=== PATIENT | male | born 1965 | race Caucasian/White ===

== ENCOUNTER 2024-03-04 10:12 | Inpatient (IN) | payer OTHER ==
[~2024-03-04] VITALS: Ht 180.3 cm; Wt 104.8 kg
[2024-03-04 13:30] VITALS: BP 138/106; TEMP 98.1
[2024-03-04] MEDS ORDERED: MAGNESIUM HYDROXIDE 30 ML UDC PO PRN (14:00)
[2024-03-04] MEDS ORDERED: ZOLPIDEM TARTRATE 5 MG TABLET PO PRN (14:00)
[2024-03-04] MEDS ORDERED: Z GUARD REMEDY 4 OZ OINT TP PRN (14:00)
[2024-03-04] MEDS ORDERED: MAG HYDROX/AL HYDROX/SIMETH 30 ML UDC PO PRN (14:00)
[2024-03-04] MEDS ORDERED: ONDANSETRON HCL/PF 4 MG/2 ML VIAL IVP PRN (14:00)
[2024-03-04] MEDS: IV D5/0.45 NACL 1,000 ML IV PRN (15:23)
[2024-03-04 15:46] LABS: BASOPHILS % (AUTO) 0.2 % (0.0-2.0); EOSINOPHILS # (AUTO) 0.1 K/uL (0.0-0.7); HEMATOCRIT 34 % (39-51); HEMOGLOBIN 10.8 g/dL (13.5-17.5); LYMPHOCYTES # (AUTO) 1.1 K/uL (0.8-4.8); LYMPHOCYTES % (AUTO) 9.5 % (20.0-44.0); MEAN CORPUSCULAR HEMOGLOBIN 26 PG (26.0-33.0); MEAN CORPUSCULAR HGB CONC 32 g/dl (31.0-36.0); MEAN CORPUSCULAR VOLUME 82 fL (80-96); MONOCYTES # (AUTO) 1.1 K/uL (0.1-1.30); MONOCYTES % (AUTO) 9.3 % (2.0-12.0); NEUTROPHILS # (AUTO) 9.4 K/uL (1.8-8.9); PLATELET COUNT (AUTO) 336 K/uL (150-450); RED CELL DISTRIBUTION WIDTH 17.7 % (11.5-15.0); WHITE BLOOD COUNT (AUTO) 11.8 K/uL (4.3-11.0)
[2024-03-04] MEDS: MORPHINE SULFATE INJ 2 MG/ML DISP.SYRIN IV PRN (15:57)
[2024-03-04 15:59] LABS: ALBUMIN 1.8 g/dL (3.4-5.0); BILIRUBIN,TOTAL 0.6 mg/dL (0.2-1.0); POTASSIUM 3.3 mmol/L (3.5-5.1); TOTAL PROTEIN, SERUM 5.5 g/dL (6.4-8.2)
[2024-03-04 16:00] VITALS: BP 124/97; TEMP 98.6
[2024-03-04 20:00] VITALS: BP 110/74; TEMP 98.2; O2SAT 96
[2024-03-04] MEDS: ENOXAPARIN SODIUM 40 MG/0.4 ML DISP.SYRIN SQ SCH (21:30)
[2024-03-04] MEDS: HYDROMORPHONE 1 MG/1 ML DISP.SYRIN IV PRN (22:03)
[2024-03-05] VITALS: BP 114/71; TEMP 98.2; O2SAT 97
[2024-03-05 07:01] LABS: BASOPHILS % (AUTO) 0.2 % (0.0-2.0); EOSINOPHILS # (AUTO) 0.1 K/uL (0.0-0.7); HEMATOCRIT 31 % (39-51); LYMPHOCYTES # (AUTO) 0.9 K/uL (0.8-4.8); LYMPHOCYTES % (AUTO) 7.6 % (20.0-44.0); MEAN CORPUSCULAR HEMOGLOBIN 27 PG (26.0-33.0); MEAN CORPUSCULAR HGB CONC 32 g/dl (31.0-36.0); MEAN CORPUSCULAR VOLUME 82 fL (80-96); MONOCYTES # (AUTO) 1.1 K/uL (0.1-1.30); NEUTROPHILS # (AUTO) 9.9 K/uL (1.8-8.9); NEUTROPHILS % (AUTO) 82.2 % (43.0-81.0); PLATELET COUNT (AUTO) 280 K/uL (150-450); RED BLOOD CELL COUNT(AUTO) 3.78 MIL/uL (4.5-6.0); RED CELL DISTRIBUTION WIDTH 17.6 % (11.5-15.0)
[2024-03-05 07:21] LABS: CALCIUM, SERUM 7.6 mg/dL (8.5-10.1); CREATININE 0.7 mg/dL (0.6-1.3); MAGNESIUM 1.6 mg/dL (1.8-2.4); PHOSPHORUS 3.1 mg/dL (2.5-4.9); POTASSIUM 3.1 mmol/L (3.5-5.1)
[2024-03-05 08:00] VITALS: BP 115/80; TEMP 97.7; O2SAT 99
[2024-03-05] MEDS: PANTOPRAZOLE 40 MG VIAL IV SCH (08:27)
[2024-03-05] MEDS: Magnesium 1GM/D5W 100ML PREMIX 100 ML IV SCH (09:47)
[2024-03-05] MEDS ORDERED: KETOROLAC TROMETHAMINE 15 MG/ML VIAL IV PRN (10:00)
[2024-03-05] MEDS: POTASSIUM CL. PREMIX PERIPHER. 50 ML IV SCH (10:45)
[2024-03-05] MEDS: LORAZEPAM INJ 2 MG/ML VIAL IV PRN (11:43)
[2024-03-05] MEDS ORDERED: TAMS-12 PO (13:04)
[2024-03-05] MEDS ORDERED: SUMA100T GT (13:04)
[2024-03-05] MEDS ORDERED: ATOR20TA PO (13:04)
[2024-03-05] MEDS ORDERED: UMEC62.5 IH (13:04)
[2024-03-05] MEDS ORDERED: GABA300C PO (13:04)
[2024-03-05] MEDS ORDERED: BUDE10.22 IH (13:04)
[2024-03-05] MEDS ORDERED: AMIO200T5 PO (13:04)
[2024-03-05] MEDS ORDERED: ONDA4TAB5 PO (13:04)
[2024-03-05] MEDS ORDERED: OMEP20CA15 PO (13:04)
[2024-03-05] MEDS ORDERED: QUET25TA PO (13:04)
[2024-03-05] MEDS ORDERED: APIX5TAB PO (13:04)
[2024-03-05] MEDS ORDERED: HYOS-27 PO (13:04)
[2024-03-05] MEDS ORDERED: FOLI0.4T6 PO (13:04)
[2024-03-05] MEDS ORDERED: DICL100G26 TP (13:04)
[2024-03-05] MEDS ORDERED: METO-357 PO (13:04)
[2024-03-05] MEDS ORDERED: PARO40TA4 PO (13:04)
[2024-03-05] MEDS ORDERED: TRAZ-182 PO (13:04)
[2024-03-05] MEDS: ACETAMINOPHEN 325 MG TABLET PO PRN (15:01)
[2024-03-05 16:00] VITALS: BP 115/89; TEMP 97.7; O2SAT 96
[2024-03-05] MEDS: LORAZEPAM INJ 2 MG/ML VIAL IV ONE (17:02)
[2024-03-05] MEDS: OLANZAPINE 10 MG VIAL IM STA (18:25)
[2024-03-05] MEDS ORDERED: Medication Not On Formulary EA (Budesonide/Formoterol Fumarate (Symbicort 80-4.5 Mcg Inh IH PRN (18:30)
[2024-03-05] MEDS: IPRATROPIUM NEB FS 0.5 MG/2.5 ML AMPUL.NEB NEB SCH (19:30)
[2024-03-05] MEDS ORDERED: BUDESONIDE RESPULE INH 0.5 MG/2 ML AMPUL.NEB NEB PRN (19:30)
[2024-03-05] MEDS ORDERED: ALBUTEROL FS 2.5 MG/3 ML VIAL.NEB NEB PRN (19:30)
[2024-03-05] MEDS: HYOSCYAMINE SULFATE 0.125 MG TAB.SUBL SL SCH (21:27)
[2024-03-05] MEDS: PAROXETINE HCL 20 MG TABLET PO SCH (21:27)
[2024-03-05] MEDS: TRAZODONE 50 MG TABLET PO SCH (21:27)
[2024-03-06] VITALS: BP 118/87; TEMP 98.4; O2SAT 95
[2024-03-06] MEDS: METOPROLOL SUCCINATE 50 MG TAB.SR.24H PO SCH
[2024-03-06 06:40] LABS: BASOPHILS % (AUTO) 0.2 % (0.0-2.0); EOSINOPHILS # (AUTO) 0.1 K/uL (0.0-0.7); EOSINOPHILS % (AUTO) 0.7 % (0.0-6.0); HEMATOCRIT 31 % (39-51); LYMPHOCYTES # (AUTO) 0.9 K/uL (0.8-4.8); MEAN CORPUSCULAR HEMOGLOBIN 27 PG (26.0-33.0); MEAN CORPUSCULAR HGB CONC 33 g/dl (31.0-36.0); MEAN CORPUSCULAR VOLUME 81 fL (80-96); MONOCYTES # (AUTO) 1.1 K/uL (0.1-1.30); MONOCYTES % (AUTO) 9.7 % (2.0-12.0); NEUTROPHILS # (AUTO) 9.1 K/uL (1.8-8.9); NEUTROPHILS % (AUTO) 81.4 % (43.0-81.0); PLATELET COUNT (AUTO) 258 K/uL (150-450); RED BLOOD CELL COUNT(AUTO) 3.76 MIL/uL (4.5-6.0); RED CELL DISTRIBUTION WIDTH 17.8 % (11.5-15.0); WHITE BLOOD COUNT (AUTO) 11.1 K/uL (4.3-11.0)
[2024-03-06 06:41] LABS: CALCIUM, SERUM 8.1 mg/dL (8.5-10.1); MAGNESIUM 2.4 mg/dL (1.8-2.4); PHOSPHORUS 3.3 mg/dL (2.5-4.9); POTASSIUM 3.4 mmol/L (3.5-5.1)
[2024-03-06 07:40] LABS: CREATININE 0.8 mg/dL (0.6-1.3)
[2024-03-06 08:00] VITALS: BP 123/92; TEMP 98.8; O2SAT 99
[2024-03-06] MEDS: ATORVASTATIN 10 MG TABLET PO SCH (08:44)
[2024-03-06] MEDS: GABAPENTIN 300 MG CAPSULE PO SCH (08:44)
[2024-03-06] MEDS: TAMSULOSIN 0.4 MG CAP.SR.24H PO SCH (08:44)
[2024-03-06] MEDS: APIXABAN 5 MG TABLET PO SCH (08:46)
[2024-03-06] MEDS: FOLIC ACID 1 MG TABLET PO SCH (08:46)
[2024-03-06] MEDS: DICLOFENAC TOPICAL 100 GM TUBE TP SCH (08:47)
[2024-03-06] MEDS ORDERED: QUETIAPINE FUMARATE 25 MG TABLET PO SCH (09:00)
[2024-03-06] MEDS ORDERED: SUMATRIPTAN SUCCINATE 100 MG TABLET GT PRN (09:00)
[2024-03-06] MEDS: AMIODARONE HCL 200 MG TABLET PO SCH (09:27)
[2024-03-06] MEDS: POTASSIUM CHLORIDE 20 MEQ TAB.PRT.SR PO SCH (11:59)
[2024-03-06] MEDS: HYDROCODONE/APAP 10/325MG TABLET PO PRN (12:27)
[2024-03-06] MEDS ORDERED: LORAZEPAM INJ 2 MG/ML VIAL IM PRN (14:00)
[2024-03-06 16:00] VITALS: BP 104/71; TEMP 97.7; O2SAT 95
[2024-03-06 20:31] VITALS: O2SAT 99
[2024-03-06 20:45] VITALS: O2SAT 99
[2024-03-06] MEDS ORDERED: HYOSCYAMINE SULFATE 0.125 MG TAB.SUBL ONE (21:09)
[2024-03-06] MEDS: PAROXETINE HCL 20 MG TABLET PO SCH (21:28)
[2024-03-07] VITALS (7 sets, daily range): BP systolic 103–110; BP diastolic 75–87; TEMP 97.3–98.4; O2SAT 95–100
[2024-03-07] MEDS ORDERED: HYOSCYAMINE SULFATE 0.125 MG TAB.SUBL ONE (05:13)
[2024-03-07 06:57] LABS: BASOPHILS % (AUTO) 0.4 % (0.0-2.0); EOSINOPHILS # (AUTO) 0.3 K/uL (0.0-0.7); EOSINOPHILS % (AUTO) 2.7 % (0.0-6.0); HEMATOCRIT 28 % (39-51); HEMOGLOBIN 9.4 g/dL (13.5-17.5); LYMPHOCYTES # (AUTO) 0.9 K/uL (0.8-4.8); LYMPHOCYTES % (AUTO) 8.9 % (20.0-44.0); MEAN CORPUSCULAR HEMOGLOBIN 27 PG (26.0-33.0); MEAN CORPUSCULAR HGB CONC 33 g/dl (31.0-36.0); MEAN CORPUSCULAR VOLUME 82 fL (80-96); NEUTROPHILS # (AUTO) 8.5 K/uL (1.8-8.9); PLATELET COUNT (AUTO) 249 K/uL (150-450); RED BLOOD CELL COUNT(AUTO) 3.46 MIL/uL (4.5-6.0); RED CELL DISTRIBUTION WIDTH 18.3 % (11.5-15.0); WHITE BLOOD COUNT (AUTO) 10.7 K/uL (4.3-11.0)
[2024-03-07 07:06] LABS: CALCIUM, SERUM 8.1 mg/dL (8.5-10.1); CREATININE 0.9 mg/dL (0.6-1.3); PHOSPHORUS 2.8 mg/dL (2.5-4.9); POTASSIUM 3.5 mmol/L (3.5-5.1)
[2024-03-07] MEDS: PANTOPRAZOLE 40 MG TABLET.DR PO SCH (07:54)
[2024-03-07] MEDS ORDERED: PARO20TA7 PO (13:54)
[2024-03-08] VITALS: BP 100/74; TEMP 98.8; O2SAT 98
[2024-03-08 04:00] VITALS: BP 104/78; TEMP 98.2; O2SAT 98
[2024-03-08 07:56] LABS: BASOPHILS % (AUTO) 0.4 % (0.0-2.0); EOSINOPHILS # (AUTO) 0.3 K/uL (0.0-0.7); EOSINOPHILS % (AUTO) 2.9 % (0.0-6.0); HEMATOCRIT 29 % (39-51); HEMOGLOBIN 9.5 g/dL (13.5-17.5); LYMPHOCYTES # (AUTO) 1.8 K/uL (0.8-4.8); LYMPHOCYTES % (AUTO) 18.7 % (20.0-44.0); MEAN CORPUSCULAR HEMOGLOBIN 27 PG (26.0-33.0); MEAN CORPUSCULAR HGB CONC 33 g/dl (31.0-36.0); MEAN CORPUSCULAR VOLUME 83 fL (80-96); MONOCYTES % (AUTO) 10.6 % (2.0-12.0); NEUTROPHILS # (AUTO) 6.4 K/uL (1.8-8.9); NEUTROPHILS % (AUTO) 67.4 % (43.0-81.0); PLATELET COUNT (AUTO) 276 K/uL (150-450); RED BLOOD CELL COUNT(AUTO) 3.49 MIL/uL (4.5-6.0); RED CELL DISTRIBUTION WIDTH 18.2 % (11.5-15.0); WHITE BLOOD COUNT (AUTO) 9.5 K/uL (4.3-11.0)
[2024-03-08 08:00] VITALS: BP 121/98; TEMP 98.5; O2SAT 96
[2024-03-08 08:04] VITALS: BP 121/98
[2024-03-08 08:06] LABS: CALCIUM, SERUM 8.1 mg/dL (8.5-10.1); CREATININE 0.9 mg/dL (0.6-1.3); PHOSPHORUS 3.8 mg/dL (2.5-4.9); POTASSIUM 3.5 mmol/L (3.5-5.1)
[2024-03-08] MEDS ORDERED: IOHEXOL-300 100 ML VIAL IV ONE (09:43)
[2024-03-08] MEDS ORDERED: CT SWABBABLE VALVE TRANS SET 1 EA INFUS.SET MC ONE (09:43)
[2024-03-08] MEDS ORDERED: IV NS 0.9% 250 ML IV ONE (09:44)
== END 2024-03-08 12:42 | disposition hospice, inpatient (51) | DRG 282 ==
LOC: MEDSG1 12:53 → TELE1 03-05 07:14
PROVIDERS: ADMIT Student in an Organized Health Care Education/Training Program; ATTEND Student in an Organized Health Care Education/Training Program
DX: K85.90 Acute pancreatitis without necrosis or infection, unspecified (principal); E43 Unspecified severe protein-calorie malnutrition; I48.91 Unspecified atrial fibrillation; E87.6 Hypokalemia; F29 Unspecified psychosis not due to a substance or known physiological condition; G31.84 Mild cognitive impairment of uncertain or unknown etiology; J44.9 Chronic obstructive pulmonary disease, unspecified; Z68.32 Body mass index [BMI] 32.0-32.9, adult; Z79.51 Long term (current) use of inhaled steroids; Z79.01 Long term (current) use of anticoagulants; Z79.899 Other long term (current) drug therapy; Z88.0 Allergy status to penicillin; Z72.0 Tobacco use; Z87.19 Personal history of other diseases of the digestive system; F43.10 Post-traumatic stress disorder, unspecified
CPT/HCPCS: 36415; 71045-TC; 80048-TC; 80053-TC; 80061-TC; 83690-TC; 83735-TC; 84100-TC; 84484-TC; 85025-TC; 94760-TC; 94762-TC; 94799-TC; A4223; G0378; J1170; J1650; J1885; J2060; J2270; J2470; J3475; J3480; J3490; J7040; J7050; Q9967